=== PATIENT | male | born 1980 | race Caucasian/White ===

== ENCOUNTER → 2023-08-16 | Outpatient (CLI) | payer OTHER ==
[~2023-08-16] MED LIST: CYMBALTA 60MG60 MG PO; GLUCOPHAGE850 MG/TAB PO; NURTEC ODT75 MG PO
== END ==
LOC: MHCPAIN 08:23
DX: M47.812 Spondylosis without myelopathy or radiculopathy, cervical region (principal); M54.2 Cervicalgia; G44.86 Cervicogenic headache
CPT/HCPCS: J0665